=== PATIENT | female | born 1975 ===

== ENCOUNTER 2025-09-16 12:41 | Emergency (ER) | payer MEDICAID ==
[~2025-09-16] VITALS: Ht 162.6 cm; Wt 116.0 kg
[2025-09-16 13:00] VITALS: O2SAT 97
[2025-09-16 14:29] LABS: BASOPHILS % 0.6 % (0.0-2.0); EOSINOPHILS % 3.4 % (0.0-5.0); HEMATOCRIT. 48.2 % (36.0-48.0); HEMOGLOBIN. 16.2 g/dL (12.0-16.0); LYMPHOCYTES % 23.1 % (20.0-50.0); MEAN PLATELET VOLUME 9.2 fl (7.4-10.4); MONOCYTES % 9.2 % (2.0-8.0); NEUTROPHILS % 63.7 % (40.0-76.0); PLATELET 251 x1000/uL (130-400); RED BLOOD CELL COUNT 5.09 mill/uL (4.2-5.4); RED CELL DISTRIBUTION WIDTH 13.5 % (11.6-14.6)
[2025-09-16 14:30] LABS: CREATININE 0.9 mg/dL (0.6-1.0); UREA NITROGEN BLOOD 16 mg/dL (9-23)
[2025-09-16 14:31] LABS: CLARITY URINE CLOUDY (CLEAR); COLOR URINE DARK YELLOW (YELLOW); GLUCOSE URINE NEGATIVE (NEGATIVE); KETONES URINE TRACE (NEGATIVE); NITRITE URINE NEGATIVE (NEGATIVE); OCCULT BLOOD URINE NEGATIVE (NEGATIVE); PH URINE 5.5 (4.5-8.0); PROTEIN URINE TRACE (NEGATIVE); SPECIFIC GRAVITY URINE 1.033 (1.005-1.030)
[2025-09-16 14:32] LABS: ASPARTATE AMINOTRANSFERASE 51 IU/L (<34); BILIRUBIN DIRECT 0.2 mg/dL (<=3.0); BILIRUBIN TOTAL 1.1 mg/dL (0.1-1.0); PROTEIN TOTAL 7.9 g/dL (6.0-8.3)
[2025-09-16 14:32] LABS: LEUKOCYTE ESTERASE URINE NEGATIVE (NEGATIVE); UROBILINOGEN URINE 1.0 E.U./dL (0.2-1.0)
[2025-09-16 14:48] LABS: HCG SCREEN NEGATIVE
[2025-09-16 16:11] VITALS: BP 115/76; PULSE 86; RESP 18; TEMP 36.7; O2SAT 100
[2025-09-16] MEDS: HYDROCODONE/ACETAMINOPHEN 10/325MG TABLET PO ONE (16:11)
[2025-09-16] MEDS ORDERED: HYDR-4009 MT (16:21)
[2025-09-16] MEDS ORDERED: ALBU18HF2 IH (16:33)
[2025-09-16] MEDS ORDERED: P50 MT (16:33)
[2025-09-16] MEDS ORDERED: BROM118S47 PO (16:33)
[2025-09-16 16:45] LABS: BACTERIA URINE 3+; SQUAMOUS EPITHELIAL CELL URINE 2+ /lpf (RARE/1+)
[2025-09-16 16:46] LABS: CALCIUM OXALATE CRYSTALS URINE 1+ /lpf
== END 2025-09-16 16:45 | disposition home or self-care (01) ==
LOC: ER 12:41
DX: K42.9 Umbilical hernia without obstruction or gangrene (principal); J20.9 Acute bronchitis, unspecified; Z90.49 Acquired absence of other specified parts of digestive tract
CPT/HCPCS: 36415; 74176; 80048; 80076; 81003; 81025; 84703; 85025; 99284